=== PATIENT | female | born 1955 | race Caucasian/White ===

== ENCOUNTER → 2016-05-25 | Outpatient (CLI) | payer OTHER ==
--- NOTE | 2016-05-25 12:19 | CR ---
EXAMINATION: Pelvis and right hip HISTORY: Artificial joint COMPARISON: 02/18/2016 TECHNIQUE: AP pelvis and 2 views of the right hip FINDINGS: There is no acute osseous abnormality, dislocation, or fracture. Bone mineralization appea rs normal. The SI joints are symmetric. Right total hip hardware is demonstrated in stable position and alignment. The left hip appears grossly normal. IMPRESSION: Stable right total hip hardware.
== END ==
LOC: MW.CHORTHO 07:39
PROVIDERS: ATTEND Orthopaedic Surgery
DX: Z96.641 Presence of right artificial hip joint (principal)
CPT/HCPCS: 73502-26-RT; 73502-RT

== ENCOUNTER 2019-05-16 08:10 | Day surgery (SDC) | payer OTHER ==
[~2019-05-16 08:10] MED LIST: Lactated Ringers 1,000 ML IV SCH; Lidocaine 2% 5 ML SDV ONE; Propofol 200 MG/20 ML SDV ONE; Sodium Chloride 0.9% 10 ML SDV IV PRN; Sodium Chloride 0.9% 10 ML Syringe FLUSH PRN; Sodium Chloride 0.9% 2.5 ML Syringe FLUSH PRN; fentaNYL 100 MCG/2 ML SDV ONE
--- NOTE | 2019-05-16 08:51 | PCM.PREANE ---
Preanesthetic Assessment - Anesthesia/Transfusion/Family Hx Anesthesia History: Prior Anesthesia Without Reaction Other Type of Anesthesia Reaction Comment: Denies any known problem in past, hx : motion sickness Family History of Anesthesia Reaction: No Transfusion History: No Prior Transfusion(s) Intubation History: Unknown - Review of Systems General: No Symptoms Pulmonary: No Symptoms Cardiovascular: No Symptoms Gastrointestinal: Hematochezia, Other (change in bowel habits) Neurological: No Symptoms Other: Reports: None - Physical Assessment Vital Signs: Last Vital Signs Temp 36.4 C 05/16/19 08:36 Pulse 89 05/16/19 08:36 Resp 16 05/16/19 08:36 BP 144/87 H 05/16/19 08:36 Pulse Ox 96 05/16/19 08:36 Height: 5 ft 4 in Weight: 78.018 kg ASA Class: 2 Mental Status: Alert & Oriented x3 Airway Class: Mallampati = 2 Dentition: Reports: Dentures (dentures) Thyro-Mental Finger Breadths: 3 Mouth Opening Finger Breadths: 3 ROM/Head Extension: Full Lungs: Clear to Auscultation, Normal Respiratory Effort Cardiovascular: Regular Rate, Regular Rhythm - Allergies Allergies/Adverse Reactions: Allergies Allergy/AdvReac Type Severity Reaction Status Date / Time MIGUEL A Inhibitors Allergy Itching Verified 05/16/19 08:43 avocado Allergy Itching Verified 05/16/19 08:43 banana Allergy Itching Verified 05/16/19 08:43 hydrochlorothiazide Allergy Diarrhea Verified 05/16/19 08:43 latex Allergy Shortness Verified 05/16/19 08:43 of Breath lisinopril Allergy Other Verified 05/16/19 08:43 Sulfa (Sulfonamide Allergy Itching Verified 05/16/19 08:43 Antibiotics) triamterene Allergy Cannot Verified 05/16/19 08:43 Remember - Blood Blood Available: No - Anesthesia Plan Pre-Op Medication Ordered: None - Acknowledgements Anesthesia Type Planned: MAC Pt an Appropriate Candidate for the Planned Anesthesia: Yes Alternatives and Risks of Anesthesia Discussed w Pt/Guardian: Yes Pt/Guardian Understands and Agrees with Anesthesia Plan: Yes PreAnesthesia Questionnaire - Past Health History Medical/Surgical History: Denies Medical/Surgical History HEENT History: Reports: Allergic Rhinitis, Other (See Below) Other HEENT History: wears glasses/contacts, has upper denture Cardiovascular History: Reports: High Cholesterol, Hypertension Respiratory History: Reports: None Other Respiratory History: Former hx: 15+ yrs smoking QUIT 13-15 yrs ago Gastrointestinal History: Reports: Colon Polyp Genitourinary History: Reports: None GENETICIST History: Reports: Musculoskeletal History: Reports: Arthritis, Fracture Other Musculoskeletal History: bilateral fx wrists Neurological History: Reports: Vertigo, Other (See Below) Other Neuro History: hx of Global Trancient Amnesia- lasted 10 hours and resolved, hx of motion sickness Psychiatric History: Reports: Anxiety, Depression Endocrine/Metabolic History: Reports: Hypothyroidism Hematologic History: Reports: None Immunologic History: Reports: None Oncologic (Cancer) History: Reports: None Dermatologic History: Reports: Other (See Below) Other Dermatologic History: dry patches on hands - Infectious Disease History Infectious Disease History: Reports: Chicken Pox, Measles - Past Surgical History Head Surgeries/Procedures: Reports: None Cardiovascular Surgical History: Reports: None Respiratory Surgical History: Reports: None GI Surgical History: Reports: Colonoscopy ( [place] - tubular adenoma), Hernia , Inguinal Other GI Surgeries/Procedures: Hernia repair Female Surgical History: Reports: Hysterectomy, Salpingo-Oophorectomy Other Female Surgeries/Procedures: ABdominal hysterectomy Endocrine Surgical History: Reports: None Neurological Surgical History: Reports: None Musculoskeletal Surgical History: Reports: Hip Replacement (), ORIF, Other ( See Below) Other Musculoskeletal Surgeries/Procedures:: ORIF left wrist (has plate), right ASHLEY, hx of left Achilles tendon repair Oncologic Surgical History: Reports: None Dermatological Surgical History: Reports: None - SUBSTANCE USE Smoking Status *Q: Former Smoker Tobacco Use Within Last Twelve Months: No Recreational Drug Use History: No - HOME MEDS Home Medications: Home Meds Aspirin [Tessa Chewable Aspirin] 81 mg PO DAILY 04/28/14 [History] Montelukast [Singulair] 10 mg PO BEDTIME 04/28/14 [History] Cetirizine [ZyrTEC] 10 mg PO DAILY PRN 09/18/14 [History] Diltiazem HCl [Diltiazem 24Hr ER] 360 mg PO QAM 09/18/14 [History] Pravastatin [Pravachol] 40 mg PO BEDTIME 09/18/14 [History] Venlafaxine HCl [Venlafaxine ER] 225 mg PO QAM 06/23/15 [History] Biotin 5,000 mcg PO DAILY 04/18/15 [History] Ezetimibe [Zetia] 10 mg PO BEDTIME 04/18/15 [History] Ubidecarenone [COQ-10] 10 mg PO DAILY 04/18/15 [History] Diclofenac Sodium [Voltaren] 50 mg PO BID PRN 05/11/19 [History] EPINEPHrine [Epipen 2-Estrada] 0.3 mg IM ASDIRECTED PRN 05/11/19 [History] Levothyroxine Sodium [Levo-T] 50 mcg PO QAM 05/11/19 [History] - CURRENT (IN HOUSE) MEDS Current Meds: Current Medications Lactated Ringer's (Ringers, Lactated) 1,000 mls @ 125 mls/hr IV ASDIRECTED WENDY Last Admin: 05/16/19 08:42 Dose: 125 mls/hr Sodium Chloride (Saline Flush) 10 ml FLUSH ASDIRECTED PRN PRN Reason: Keep Vein Open Sodium Chloride (Saline Flush) 2.5 ml FLUSH ASDIRECTED PRN PRN Reason: Keep Vein Open Sodium Chloride (Saline Flush) 10 ml FLUSH ASDIRECTED PRN PRN Reason: Keep Vein Open Sodium Chloride (Saline Flush) 2.5 ml FLUSH ASDIRECTED PRN PRN Reason: Keep Vein Open Sodium Chloride (Normal Saline) 10 ml IV ASDIRECTED PRN PRN Reason: IV Use Discontinued Medications Fentanyl (Sublimaze) Confirm Administered Dose 100 mcg .ROUTE .STK-MED ONE Stop: 05/16/19 07:27 Lidocaine (Xylocaine-Mpf 2%) Confirm Administered Dose 5 ml .ROUTE .STK-MED ONE Stop: 05/16/19 07:27 Propofol (Diprivan 20 Ml) Confirm Administered Dose 400 mg .ROUTE .STK-MED ONE Stop: 05/16/19 07:27
--- NOTE | 2019-05-16 10:09 | PCM.POSTAN ---
POST ANESTHESIA ASSESSMENT - MENTAL STATUS Mental Status: Alert, Oriented - VITAL SIGNS Vital Signs: Last Vital Signs Temp 37 C 05/16/19 09:49 Pulse 84 05/16/19 09:59 Resp 12 05/16/19 09:59 BP 118/69 05/16/19 09:59 Pulse Ox 96 05/16/19 09:59 - RESPIRATORY Respiratory Status: Respiratory Rate WNL, Airway Patent, O2 Saturation Stable - CARDIOVASCULAR CV Status: Pulse Rate WNL, Blood Pressure Stable - GASTROINTESTINAL GI Status: No Symptoms - PAIN Pain Score: 0 - POST OP HYDRATION Hydration Status: Adequate & Stable - OBSERVATIONS Free Text/Narrative:: No anesthesia problems
--- NOTE | 2019-05-16 10:25 | PCM48HPAN ---
Post Anesthesia Note - EVALUATION WITHIN 48HRS OF ANESTHETIC Vital Signs in Normal Range: Yes Patient Participated in Evaluation: Yes Respiratory Function Stable: Yes Airway Patent: Yes Cardiovascular Function Stable: Yes Hydration Status Stable: Yes Pain Control Satisfactory: Yes Nausea and Vomiting Control Satisfactory: Yes Mental Status Recovered: Yes Vital Signs: Last Vital Signs Temp 37 C 05/16/19 09:49 Pulse 83 05/16/19 10:04 Resp 18 05/16/19 10:04 BP 116/75 05/16/19 10:04 Pulse Ox 95 05/16/19 10:04 - COMMENTS/OBSERVATIONS Free Text/Narrative:: No anesthesia problems
--- NOTE | 2019-05-16 10:38 | PCM.OPNOTE ---
- General Post-Op/Procedure Note Date of Surgery/Procedure: 05/16/19 Operative Procedure(s): Diagnostic colonoscopy Findings: normal colonoscopy Pre Op Diagnosis: chronic diarrhea Post-Op Diagnosis: Normal colonoscopy Anesthesia Technique: MAC Primary Surgeon: Amy Brewer Condition: Good Free Text/Narrative:: Intake & Output 05/15/19 05/16/19 05/16/19 22:59 06:59 14:59 Intake Total 600 Balance 600
[2019-05-16 11:32] VITALS: BP 133/88; PULSE 82
--- NOTE | 2019-05-17 14:08 | OR ---
SURGEON: AMY BREWER MD DATE OF PROCEDURE: 05/16/2019 PREOPERATIVE DIAGNOSIS: Change in bowel habits. POSTOPERATIVE DIAGNOSIS: Normal colonoscopy. PROCEDURE PERFORMED: Diagnostic colonoscopy. PRIMARY SURGEON: Amy Brewer MD. ANESTHESIA: MAC. INSTRUMENT USED: Olympus colonoscope. EXTENT OF THE EXAM: To the cecum. PREPARATION: Good. LIMITATIONS: None. INDICATIONS FOR EXAMINATION: The patient is a 63-year-old female who presents with ongoing diarrhea. I explained the need for a diagnostic colonoscopy. I explained the procedure; expected perioperative course; and risks including bleeding, infection, or damage to surrounding structures including perforation. The patient verbalized understanding and wishes to proceed. PROCEDURE IN DETAIL: The patient was brought into the endoscopy suite and placed in a left lateral decubitus position. A time-out was completed verifying the patient's name, age, date of , allergies, and procedure to be performed. Monitored anesthesia care was induced and continuous oxygen was provided via nasal cannula throughout the procedure. After adequate sedation was achieved, a digital rectal exam was performed. This exam was within normal limits. A well-lubricated colonoscope was inserted in the rectum and advanced under direct visualization to the level of the cecum. The cecum was identified by both visual and anatomic landmarks. A photograph was taken of the cecal cap as well as with the scope retroflexed within the cecum. The scope was then fully withdrawn while examining the color, texture, anatomy, and integrity of the mucosa from the cecum to the anal canal. The findings were consistent with normal colonic mucosa. The scope was brought into the rectum and retroflexed to allow visualization of the anal canal opening. This appeared normal and a photograph was taken. The scope was then straightened out and fully withdrawn. The cecum to anus time was 7 minutes. The patient tolerated the procedure well and was transferred to the PACU in stable condition. ENDOSCOPIC DIAGNOSIS: Normal colonoscopy. RECOMMENDATIONS: I visited with the patient in the postoperative care area. Her bowel habits have gone back to normal. We discussed my intraoperative findings today. She should come back in 10 years for repeat colonoscopy or sooner should she develop any further changes in her bowel habits. TREY / JUSTIN /[id number]
== END 2019-05-16 10:42 | disposition home or self-care (01) ==
LOC: MW.SDS 08:10
PROVIDERS: ATTEND Surgery
DX: R19.7 Diarrhea, unspecified (principal); I10 Essential (primary) hypertension; E03.9 Hypothyroidism, unspecified; M17.12 Unilateral primary osteoarthritis, left knee; E78.5 Hyperlipidemia, unspecified; F32.9 Major depressive disorder, single episode, unspecified; F41.9 Anxiety disorder, unspecified; E78.00 Pure hypercholesterolemia, unspecified; Z86.010 Personal history of colon polyps; Z88.8 Allergy status to other drugs, medicaments and biological substances; Z91.040 Latex allergy status; Z88.2 Allergy status to sulfonamides; Z91.018 Allergy to other foods; Z79.82 Long term (current) use of aspirin; Z79.899 Other long term (current) drug therapy; Z87.891 Personal history of nicotine dependence
CPT/HCPCS: 45378; J2001; J2704; J3010; J7120

== ENCOUNTER 2023-10-10 08:24 | Emergency (ER) | payer MEDICARE, OTHER ==
[2023-10-10] MEDS: Acetaminophen 325 MG Tab PO ONE (09:03)
[2023-10-10] MEDS: Ketorolac 30 MG/ML SDV IM ONE (09:03)
[2023-10-10 10:20] VITALS: BP 142/79; PULSE 80
== END 2023-10-10 10:20 | disposition home or self-care (01) ==
LOC: MW.ED 08:24
DX: M25.561 Pain in right knee (principal); I10 Essential (primary) hypertension; E78.00 Pure hypercholesterolemia, unspecified; M19.90 Unspecified osteoarthritis, unspecified site; Z90.710 Acquired absence of both cervix and uterus; Z79.82 Long term (current) use of aspirin; Z79.899 Other long term (current) drug therapy; Z88.2 Allergy status to sulfonamides; Z88.8 Allergy status to other drugs, medicaments and biological substances; Z91.018 Allergy to other foods; Z91.040 Latex allergy status
CPT/HCPCS: 73562; 96372; 99283; A9270; J1885

== ENCOUNTER 2024-04-28 17:53 | Emergency (ER) | payer MEDICARE, OTHER ==
[2024-04-28 18:44] LABS: BASOPHILS ABSOLUTE AUTO 0.04 K/uL (0.00-0.20); BASOPHILS PERCENT AUTO 0.6 % (0.0-1.0); HEMATOCRIT 37.5 % (37.0-47.0); HEMOGLOBIN 13.2 g/dL (12.0-16.0); IMMATURE GRAN ABSOLUTE AUTO 0.03 K/uL (0.00-0.05); IMMATURE GRAN PERCENT AUTO 0.4 % (0.0-0.4); LYMPHOCYTES ABSOLUTE AUTO 1.93 K/uL (1.00-4.80); MEAN CORPUSCULAR HEMOGLOBIN 28.8 pg (28.0-32.0); MEAN CORPUSCULAR HGB CONC 35.2 g/dL (32.0-36.0); MEAN CORPUSCULAR VOLUME 81.7 fL (83.0-99.0); MEAN PLATELET VOLUME 9.4 fL (9.4-12.3); MONOCYTES ABSOLUTE AUTO 0.54 K/uL (0.00-0.80); MONOCYTES PERCENT AUTO 7.6 % (0.0-8.0); NEUTROPHILS PERCENT AUTO 64.4 % (41.0-71.0); PLATELET COUNT,PLT 191 K/uL (150-400); RED BLOOD CELL COUNT 4.59 M/uL (4.10-5.30); WHITE BLOOD CELL COUNT,WBC 7.14 K/uL (3.9-11.3)
[2024-04-28 19:08] LABS: A/G RATIO 1.2 (0.9-1.6); ALANINE AMINOTRANSFERASE,ALT 29 IU/L (14-63); ALBUMIN 3.7 g/dL (3.4-5.0); ALKALINE PHOSPHATASE 46 U/L (46-116); ASPARTATE AMNIOTRANSFERASE,AST 16 IU/L (15-37); BILIRUBIN TOTAL 0.3 mg/dL (0.2-1.0); BLOOD UREA NITROGEN,BUN 12 mg/dL (7.0-18.0); CALCIUM 8.5 mg/dL (8.5-10.1); CARBON DIOXIDE,CO2 24.2 mmol/L (21.0-32.0); CHLORIDE,CL 98 mmol/L (98-107); CREATININE 0.6 mg/dL (0.6-1.0); EST CRCL DRUG DOSING (CG) 79.64 mL/min; ETHANOL BLOOD MEDICAL 249 mg/dL; GLUCOSE RANDOM 100 mg/dL (74-106); POTASSIUM,K 3.8 mmol/L (3.5-5.1); PROTEIN TOTAL,TP 6.7 g/dL (6.4-8.2); SODIUM,NA 135 mmol/L (136-145)
[2024-04-28 19:14] LABS: ESTIMATED GFR 99 mL/min (>60)
[2024-04-28] MEDS: Sodium Chloride 0.9% 1,000 ML IV ONE (19:46)
[2024-04-28] MEDS: Ondansetron 4 MG/2 ML SDV IVPUSH ONE (19:52)
[2024-04-28] MEDS: Metoclopramide 10 MG/2 ML SDV IM ONE (19:54)
[2024-04-28 20:44] VITALS: BP 128/84; PULSE 73
== END 2024-04-28 21:05 ==
LOC: MW.ED 17:53
DX: S06.6XAA Traumatic subarachnoid hemorrhage with loss of consciousness status unknown, initial encounter (principal); E86.0 Dehydration; I10 Essential (primary) hypertension; M19.90 Unspecified osteoarthritis, unspecified site; E78.00 Pure hypercholesterolemia, unspecified; Z75.8 Other problems related to medical facilities and other health care; Z88.2 Allergy status to sulfonamides; Z91.040 Latex allergy status; Z91.018 Allergy to other foods; Z88.8 Allergy status to other drugs, medicaments and biological substances; Z79.82 Long term (current) use of aspirin; Z79.890 Hormone replacement therapy; Z79.899 Other long term (current) drug therapy; Z90.710 Acquired absence of both cervix and uterus; W19.XXXA Unspecified fall, initial encounter
CPT/HCPCS: 36415; 70450; 71045; 72125; 80053; 80307; 84484; 85025; 93005; 96361; 96372; 96374; 99285; J2405; J2765; J7030